=== PATIENT | male | born 1930 | race Two or more races ===

== ENCOUNTER 2017-08-13 12:03 | Emergency (ER) | payer OTHER ==
[~2017-08-13] VITALS: Ht 167.6 cm; Wt 65.8 kg
--- NOTE | 2017-08-13 12:20 | NUR ---
PATIENT TO ED DT [facility]- PATIENT SUSTAINED FOREHEAD LAC AND BOTH LOWER KNEES ABRASION. NO REPORTED KO. PATIENT'S VSS. PENDING MD COLON
--- NOTE | 2017-08-13 14:20 | NUR ---
PER PT HE RECEIVED TETANUS SHOT FROM HIS PMD LAST YEAR.
[2017-08-13] MEDS ORDERED: TDAP [DIPH/PERTUSSIS/TET] 0.5 ML VIAL IM ONE ×2 (14:28→14:30)
[2017-08-13 14:32] VITALS: BP 146/75
--- NOTE | 2017-08-13 14:34 | NUR ---
Patient discharged to home in stable condition. Written and verbal after care instructions given. Patient verbalizes understanding of instruction.
== END 2017-08-13 14:35 | disposition home or self-care (01) ==
LOC: ER 12:04
DX: S01.81XA Laceration without foreign body of other part of head, initial encounter (principal); S80.211A Abrasion, right knee, initial encounter; S80.212A Abrasion, left knee, initial encounter; E11.9 Type 2 diabetes mellitus without complications; Z79.02 Long term (current) use of antithrombotics/antiplatelets; W01.0XXA Fall on same level from slipping, tripping and stumbling without subsequent striking against object, initial encounter; Y93.89 Activity, other specified; Y92.488 Other paved roadways as the place of occurrence of the external cause; Y99.8 Other external cause status
CPT/HCPCS: 12011; 70450; 90715; 99284; A4606; A6402; A6403; Z7610